=== PATIENT | male | born 1995 | race Asian ===

== ENCOUNTER 2017-10-08 11:11 | Emergency (ER) | payer OTHER ==
[~2017-10-08] VITALS: Ht 167.6 cm; Wt 112.5 kg
[2017-10-08 11:25] VITALS: BP 141/91; Ht 167.6 cm; Wt 112.5 kg
== END 2017-10-08 12:49 | disposition home or self-care (01) ==
LOC: ED 11:11
DX: J02.9 Acute pharyngitis, unspecified (principal)

== ENCOUNTER 2017-10-16 17:18 | Emergency (ER) | payer OTHER ==
[~2017-10-16] VITALS: Ht 170.2 cm; Wt 112.0 kg
[2017-10-16 17:25] VITALS: BP 139/93; Ht 170.2 cm; Wt 112.0 kg
== END 2017-10-16 20:30 | disposition left against medical advice (07) ==
LOC: ED 17:18
DX: Z53.21 Procedure and treatment not carried out due to patient leaving prior to being seen by health care provider (principal)

== ENCOUNTER 2017-10-21 12:30 | Emergency (ER) | payer OTHER ==
[~2017-10-21] VITALS: Ht 167.6 cm; Wt 112.0 kg
[2017-10-21 12:40] VITALS: Ht 167.6 cm; Wt 112.0 kg
[2017-10-21 13:13] LABS: BASOPHIL % 0.6 % (0-2); PLATELET COUNT 228 x10^3mcL (130-400); RED CELL DISTRIBUTION WIDTH 13.2 % (11.5-14.5)
[2017-10-21 13:30] LABS: CARBON DIOXIDE 26.1 mmol/L (21-32); CHLORIDE SERUM 106 mmol/L (98-107); CREATININE SERUM 1.1 mg/dL (0.7-1.3); GFR1 > 60 mL/min; GLUCOSE SERUM 102 mg/dL (74-106); POTASSIUM SERUM 4.3 mmol/L (3.5-5.1); SODIUM SERUM 141 mmol/L (136-145)
[2017-10-21 13:34] LABS: ALBUMIN 4.1 g/dL (3.4-5.0); ALKALINE PHOSPHATASE 75 U/L (46-116); ALT/SGPT 46 U/L (16-63); AST/SGOT 29 U/L (15-37); BILIRUBIN TOTAL 0.44 mg/dL (0.20-1.00); LIPASE 141 IU/L (73-393); TOTAL PROTEIN, SERUM 7.5 g/dL (6.4-8.2)
[2017-10-21 13:53] VITALS: BP 135/67
== END 2017-10-21 13:53 | disposition home or self-care (01) ==
LOC: ED 12:30
PROVIDERS: Emergency Medicine
DX: K59.00 Constipation, unspecified (principal)
CPT/HCPCS: 36415

== ENCOUNTER 2018-03-25 19:29 | Emergency (ER) | payer OTHER ==
[~2018-03-25] VITALS: Ht 170.2 cm; Wt 113.9 kg
[2018-03-25 19:39] VITALS: BP 132/81; Ht 170.2 cm; Wt 113.9 kg
== END 2018-03-25 22:29 | disposition home or self-care (01) ==
LOC: ED 19:29
DX: R13.10 Dysphagia, unspecified (principal); F41.9 Anxiety disorder, unspecified; R07.0 Pain in throat